=== PATIENT | female | born 1970 | race Caucasian/White ===

== ENCOUNTER 2017-10-07 10:23 | Emergency (ER) | payer SELFPAY ==
[~2017-10-07] VITALS: Ht 165.1 cm; Wt 60.0 kg
[2017-10-07 11:50] VITALS: BP 115/76
== END 2017-10-07 12:30 | disposition home or self-care (01) ==
LOC: ER 10:23
DX: F10.129 Alcohol abuse with intoxication, unspecified (principal); Y90.9 Presence of alcohol in blood, level not specified
CPT/HCPCS: 99283